=== PATIENT | female | born 1965 | race Caucasian/White ===

== ENCOUNTER 2016-11-29 14:15 | Observation (INO) | payer OTHER ==
[2016-11-29] MEDS ORDERED: BABY ASPIRIN 81 MG CHEW PO ONE (14:29)
[2016-11-29] MEDS ORDERED: BABY ASPIRIN 81 MG CHEW ONE (14:32)
[2016-11-29] MEDS ORDERED: GI COCKTAIL 45 ML (Maalox/Lidocaine) PO ONE (14:40)
--- NOTE | 2016-11-29 14:45 | ERPHSYRPT ---
- History of Present Illness Time Seen by Provider: 11/29/16 14:25 Historian: patient Exam Limitations: no limitations Patient Subjective Stated Complaint: pt states at 0400 this morning she raphael up with chest pressure. states pain has stayed the same all day. pt sent over from 's office. Triage Nursing Assessment: pt pink, warm, dry. radial pulses strong. pt ambulated into ER without difficulty. Physician History: 51 y/o female with history of hypercholesterolemia sent from Dr Sher'adolfo office for epigastric and chest pressure that started this morning at 4 am. Pt describes the pain as pressure-like, 3/10, constant and pt has not taken any pain meds. Pt denies any shortness of breath, dizziness, palpitations, nausea, vomiting or constipation. Pt has never had a stress test in the past. Pt is a chronic smoker for many years. Timing/Duration: today Activities at Onset: rest Quality: pressure Location: epigastric Chest Pain Radiation: no radiation Severity of Pain-Max: mild Severity of Pain-Current: mild Associated Symptoms: No nausea, No vomiting Nitro Today/Relief: no nitro taken today Aspirin Treatment Today: 81 mg x 4, provided by ED Allergies/Adverse Reactions: No Known Drug Allergies Allergy (Unverified 11/29/16 14:29) Home Medications: Albuterol Sulfate [Proair Hfa] 8.5 gm IH BIDPRN PRN 11/28/16 [History] Atorvastatin Calcium [Lipitor 40Mg] 40 mg PO DAILY 11/28/16 [History] Hx Tetanus, Diphtheria Vaccination/Date Given: Yes (unknown) Hx Influenza Vaccination/Date Given: No Hx Pneumococcal Vaccination/Date Given: No Immunizations Up to Date: Yes - Review of Systems Constitutional: No Fever, No Chills Eyes: No Symptoms Ears, Nose, & Throat: No Symptoms Respiratory: No Cough, No Dyspnea Cardiac: Chest Pain, No Edema, No Syncope Abdominal/Gastrointestinal: Abdominal Pain, No Nausea, No Vomiting, No Diarrhea Genitourinary Symptoms: No Dysuria Musculoskeletal: No Back Pain, No Neck Pain Skin: No Rash Neurological: No Dizziness, No Focal Weakness, No Sensory Changes Psychological: No Symptoms Endocrine: No Symptoms All Other Systems: Reviewed and Negative - Past Medical History Pertinent Past Medical History: Yes Cardiac History: High Cholesterol GI Medical History: GERD - Past Surgical History Past Surgical History: Yes Female Surgical History: Section - Social History Smoking Status: Current every day smoker How long have you smoked: 35 Exposure to second hand smoke: Yes Drug Use: none Patient Lives Alone: No - Nursing Vital Signs Nursing Vital Signs: Initial Vital Signs Temperature 98.5 F 11/29/16 14:22 Pulse Rate 68 11/29/16 14:22 Respiratory Rate 18 11/29/16 14:22 Blood Pressure 191/93 11/29/16 14:22 O2 Sat by Pulse Oximetry 98 11/29/16 14:22 Pain Scale Pain Intensity 3 - Physical Exam General Appearance: no apparent distress, alert, anxiety Eye Exam: PERRL/EOMI, eyes nml inspection Ears, Nose, Throat Exam: normal ENT inspection, moist mucous membranes Neck Exam: normal inspection, non-tender, supple, full range of motion Respiratory Exam: normal breath sounds, lungs clear, No respiratory distress Cardiovascular Exam: regular rate/rhythm, normal heart sounds Gastrointestinal/Abdomen Exam: soft, No tenderness, No mass Back Exam: normal inspection, No CVA tenderness, No vertebral tenderness Extremity Exam: normal inspection, normal range of motion Neurologic Exam: alert, oriented x 3, cooperative, normal mood/affect, sensation nml, No motor deficits Skin Exam: normal color, warm, dry SpO2: 98 Oxygen Delivery: Room Air - Course Nursing assessment & vital signs reviewed: Yes EKG Interpreted by Me: RATE (HR 65), NORMAL AXIS, NORMAL INTERVALS, NORMAL QRS Ordered Tests: Active Orders 24 hr Category Date Time Status Bedrest with BRP/BSC ROUTINE Activity 11/29/16 15:45 Active Admission/Status Order ROUTINE Care 11/29/16 15:45 Active Code Status Order ROUTINE Care 11/29/16 15:45 Active EKG-ER Only STAT Care 11/29/16 14:29 Active IV Care Q6H Care 11/29/16 15:45 Active IV Insertion STAT Care 11/29/16 14:29 Active Implement Chest Pain Pathway ROUTINE Care 11/29/16 15:45 Active Mac Isaacs, Apply ROUTINE Care 11/29/16 15:45 Active Telemetry ROUTINE Care 11/29/16 15:45 Active Weight,Daily 0600 Care 11/29/16 15:45 Active Cardiac Diet Diet 11/29/16 Dinner Active CHEST 2 VIEWS (PA AND LAT) Stat Exams 11/29/16 14:39 Completed CBC W DIFF Stat Lab 11/29/16 14:55 Completed CMP Stat Lab 11/29/16 14:55 Completed D-DIMER QUANTITATION Stat Lab 11/29/16 14:39 Completed HCG QUALITATIVE,SERUM Stat Lab 11/29/16 14:55 Completed LIPID PROFILE AM.LAB Lab 11/30/16 04:00 Ordered PT INR [PROTIME WITH INR] Stat Lab 11/29/16 14:39 Completed PTT Stat Lab 11/29/16 14:39 Completed TROPONIN Q3H Lab 11/29/16 14:55 Completed TROPONIN Q3H Lab 11/29/16 17:45 Ordered TROPONIN Q3H Lab 11/29/16 20:45 Ordered TROPONIN Q3H Lab 11/29/16 23:45 Ordered TROPONIN Q3H Lab 11/30/16 02:45 Ordered EKG Q8HX2,QAMX3,PRN RT 11/29/16 15:45 Active Pulse Oximetry Q4H RT 11/29/16 15:45 Active Transfer Order Routine Transfer 11/29/16 Completed Medication Summary Generic Name Dose Route Start Last Admin Trade Name Freq PRN Reason Stop Dose Admin Acetaminophen 650 mg 11/29/16 15:45 Tylenol 325 Mg PO 12/29/16 15:44 Q4H PRN PRN PAIN AND/OR FEVER Al Hydrox/Mg Hydrox/Simethicone 30 ml 11/29/16 15:45 Maalox Es 30 Ml Unit Dose PO 12/29/16 15:44 Q4H PRN PRN INDIGESTION Albuterol Sulfate 2 puff 11/29/16 17:10 Proventil Common Canister IH 12/29/16 17:09 BID PRN PRN Amoxicillin 500 mg 11/29/16 22:00 Amoxil 500 Mg PO 12/29/16 21:59 TID REGAN Aspirin 325 mg 11/30/16 10:00 Ecotrin 325 Mg PO 12/30/16 09:59 DAILY REGAN Magnesium Hydroxide 30 - 60 ml 11/29/16 15:45 Milk Of Magnesia 30 Ml PO 12/29/16 15:44 QDP PRN CONSTIPATION Nicotine 21 mg 11/29/16 17:00 11/29/16 17:19 Nicoderm Cq 21 Mg TOP 12/29/16 16:59 21 mg Q24H REGAN Administration Nitroglycerin 0.4 mg 11/29/16 15:20 Nitrostat 0.4 Mg Tablet SL 12/29/16 15:19 Q5MIN PRN MR X 3 PRN CHEST PAIN Ondansetron HCl 4 mg 11/29/16 15:45 Zofran 4 Mg/2 Ml Vial IV 12/29/16 15:44 Q4H PRN PRN NAUSEA/VOMITING Pantoprazole Sodium 40 mg 11/30/16 10:00 Protonix 40mg Tablet PO 12/30/16 09:59 DAILY REGAN Senna/Docusate Sodium 2 udtab 11/29/16 15:45 Senokot-S Tablet PO 12/29/16 15:44 BID PRN PRN CONSTIPATION Simvastatin 40 mg 11/29/16 22:00 Zocor 20mg PO 12/29/16 21:59 HS REGAN Discontinued Medications Generic Name Dose Route Start Last Admin Trade Name Freq PRN Reason Stop Dose Admin Al Hydrox/Mg Hydrox/Simethicone Confirm 11/29/16 14:49 Maalox Es 30 Ml Unit Dose Administered 11/29/16 14:50 Dose 30 ml .ROUTE .STK-MED ONE Aspirin 324 mg 11/29/16 14:29 11/29/16 14:34 Baby Aspirin 81 Mg Chew PO 11/29/16 14:30 324 mg STAT ONE Administration Aspirin Confirm 11/29/16 14:32 Baby Aspirin 81 Mg Chew Administered 11/29/16 14:33 Dose 324 mg .ROUTE .STK-MED ONE Lidocaine HCl Confirm 11/29/16 14:49 Xylocaine Hcl Viscous * Administered 11/29/16 14:50 Dose 15 ml .ROUTE .STK-MED ONE Magnesium Hydroxide 45 ml 11/29/16 14:40 11/29/16 14:51 Gi Cocktail 45 Ml (Maalox/Lidocaine) PO 11/29/16 14:41 45 ml STAT ONE Administration Nitroglycerin Confirm 11/29/16 15:22 Nitrostat 0.4 Mg (Ed) Administered 11/29/16 15:23 Dose 0.4 mg SL .STK-MED ONE Lab/Rad Data: Laboratory Result Diagrams 11/29/16 14:55 11/29/16 14:55 Laboratory Results 11/29/16 11/29/1617 Range/Units 14:55 14:55 14:55 WBC (4.0-10.5) K/mm3 RBC (4.1-5.4) M/mm3 Hgb (12.0-16.0) gm/dl Hct (35-47) % MCV (78-100) fl MCH (26-32) pg MCHC (32-36) g/dl RDW (11.5-14.0) % Plt Count (150-450) K/mm3 MPV (6-9.5) fl Gran % (36.0-66.0) % Lymphocytes % (24.0-44.0) % Monocytes % (0.0-12.0) % Eosinophils % (0.00-5.0) % Basophils % (0.0-0.4) % Basophils # (0-0.4) INR (0.8-3.0) APTT (25.3-37.0) SECONDS D-Dimer (0-500) ng/mL Sodium 143 (136-145) mEq/L Potassium 4.0 (3.5-5.1) mEq/L Chloride 104 (98-107) mEq/L Carbon Dioxide 29.3 (21-32) mEq/L Anion Gap 13.3 (5-15) MEQ/L BUN 14 (9-20) mg/dL Creatinine 1.22 (0.55-1.30) mg/dl Estimated GFR 49 ML/MIN Glucose 118 H (70-110) MG/DL Calcium 9.6 (8.5-10.1) mg/dL Total Bilirubin 0.40 (0.2-1.0) mg/dL AST 17 (15-37) U/L ALT 21 (12-78) U/L Alkaline Phosphatase 87 (46-116) U/L Troponin I < 0.017 (0.000-0.056) ng/ml Serum Total Protein 7.7 (6.4-8.2) gm/dL Albumin 3.6 (3.4-5.0) g/dL Serum , Qual NEGATIVE (Negative) 11/29/16 11/29/16 Range/Units 14:55 14:39 WBC 10.1 (4.0-10.5) K/mm3 RBC 4.63 (4.1-5.4) M/mm3 Hgb 14.1 (12.0-16.0) gm/dl Hct 43.2 (35-47) % MCV 93.3 (78-100) fl MCH 30.5 (26-32) pg MCHC 32.6 (32-36) g/dl RDW 13.5 (11.5-14.0) % Plt Count 222 (150-450) K/mm3 MPV 11.1 H (6-9.5) fl Gran % 56.2 (36.0-66.0) % Lymphocytes % 34.0 (24.0-44.0) % Monocytes % 6.4 (0.0-12.0) % Eosinophils % 3.0 (0.00-5.0) % Basophils % 0.4 (0.0-0.4) % Basophils # 0.04 (0-0.4) INR 1.02 (0.8-3.0) APTT 35.6 (25.3-37.0) SECONDS D-Dimer 258 (0-500) ng/mL Sodium (136-145) mEq/L Potassium (3.5-5.1) mEq/L Chloride (98-107) mEq/L Carbon Dioxide (21-32) mEq/L Anion Gap (5-15) MEQ/L BUN (9-20) mg/dL Creatinine (0.55-1.30) mg/dl Estimated GFR ML/MIN Glucose (70-110) MG/DL Calcium (8.5-10.1) mg/dL Total Bilirubin (0.2-1.0) mg/dL AST (15-37) U/L ALT (12-78) U/L Alkaline Phosphatase (46-116) U/L Troponin I (0.000-0.056) ng/ml Serum Total Protein (6.4-8.2) gm/dL Albumin (3.4-5.0) g/dL Serum , Qual (Negative) - Progress Progress: improved Progress Note: 11/29/16 15:38 Pt has no relief of pain after receiving GI cocktail but admits to some relief after receiving nitro 0.4mg SL X 1 dose. The EKG and troponin are unremarkable. Pt will need to be admitted for chest pain and to have the cardiac enzymes followed. - Departure Time of Disposition: 17:54 Departure Disposition: In-patient Admission Clinical Impression: Chest pain Qualifiers: Chest pain type: unspecified Qualified Code(s): R07.9 - Chest pain, unspecified Condition: Stable Critical Care Time: No
[2016-11-29] MEDS ORDERED: XYLOCAINE HCl Viscous ONE (14:49)
[2016-11-29] MEDS ORDERED: MAALOX ES 30 ML UNIT DOSE ONE (14:49)
[2016-11-29 14:59] LABS: BASOPHIL % 0.4 % (0.0-0.4); Granulocytes % 56.2 % (36.0-66.0); Mean Cell Volume 93.3 fl (78-100); Mean Corpuscular Hemoglobin 30.5 pg (26-32); Mean Platelet Volume 11.1 fl (6-9.5); Monocytes % 6.4 % (0.0-12.0); Platelet Count 222 K/mm3 (150-450); Red Blood Count 4.63 M/mm3 (4.1-5.4); Red Cell Distribution Width 13.5 % (11.5-14.0); White Blood Count 10.1 K/mm3 (4.0-10.5)
[2016-11-29] MEDS ORDERED: Nitrostat 0.4 MG Tablet SL PRN (15:20)
[2016-11-29] MEDS ORDERED: Nitrostat 0.4 MG (ED) SL ONE (15:22)
[2016-11-29 15:26] LABS: ALBUMIN 3.6 g/dL (3.4-5.0); ANION GAP 13.3 MEQ/L (5-15); BILIRUBIN,TOTAL 0.4 mg/dL (0.2-1.0); Carbon Dioxide 29.3 mEq/L (21-32); Total Protein 7.7 gm/dL (6.4-8.2)
--- NOTE | 2016-11-29 15:26 | XRAY ---
Indication: Chest pain. Comparison: November 12, 2016. PA/lateral chest again demonstrates normal heart, lungs, and bony thorax.
[2016-11-29] MEDS ORDERED: MAALOX ES 30 ML UNIT DOSE PO PRN (15:45)
[2016-11-29] MEDS ORDERED: Zofran 4 MG/2 ML VIAL IV PRN (15:45)
[2016-11-29] MEDS ORDERED: Senokot-S Tablet PO PRN (15:45)
[2016-11-29] MEDS ORDERED: TYLENOL 325 MG PO PRN (15:45)
[2016-11-29] MEDS ORDERED: MILK OF MAGNESIA 30 ML PO PRN (15:45)
[2016-11-29 15:50] LABS: INR 1.02 (0.8-3.0); PROTIME 11.3 SECONDS (9.95-12.35)
[2016-11-29 15:53] LABS: PTT 35.6 SECONDS (25.3-37.0)
[2016-11-29] MEDS ORDERED: Nicoderm CQ 21 MG TOP SCH (17:00)
[2016-11-29] MEDS ORDERED: Ventolin Hfa MDI IH PRN (17:05)
[2016-11-29] MEDS ORDERED: PROVENTIL COMMON CANISTER IH PRN (17:10)
[2016-11-29] MEDS ORDERED: ZOCOR 20MG PO SCH (22:00)
[2016-11-29] MEDS: AMOXIL 500 MG PO SCH (22:15)
[2016-11-30] MEDS ORDERED: PROVENTIL COMMON CANISTER IH SCH (07:00)
[2016-11-30 08:28] VITALS: PULSE 76; O2SAT 96
[2016-11-30 08:38] VITALS: BP 143/65
[2016-11-30] MEDS: AMOXIL 500 MG PO SCH (08:43)
--- NOTE | 2016-11-30 08:46 | PCM.DCORD ---
- Discharge Discharge Date: 11/30/16 Disposition: Home, Self-Care Condition: Stable Prescriptions: New Amoxicillin 500 mg PO TID #30 capsule Aspirin 81 mg PO DAILY #30 tablet Continue Esomeprazole Magnesium [Nexium 24Hr] 40 mg PO DAILY #7 tablet. Atorvastatin Calcium [Lipitor 40Mg] 40 mg PO DAILY Albuterol Sulfate [Proair Hfa] 8.5 gm IH BIDPRN PRN PRN Reason: Shortness Of Breath/Wheezing Follow up with: STU DE ANDA [Primary Care Provider] - Forms: Patient Portal Information
--- NOTE | 2016-11-30 08:46 | PCM.HP ---
History of Present Illness - Chief Complaint Chief Complaint: chest pain Date: 11/30/16 History of Present Illness: is a 51 year old female. who was seen in clinic yesterday by Dr. Barrett for chest pressure substernal that she awoke with and was thought to have some changes on her ekg so was sent to ed where ekg there was normal and no change compared to an old ekg of her. The chest pressure has subsided since yesterday and is mild and rare now. She has no shortness of breath or diaphoresis no nausea or vomiting. She has chronic heart burn she is treated for and taking her PPI. she continues to smoke. no previous cardiac disease or evaluation. - Review of Systems Constitutional: No Fever, No Chills Eyes: No Symptoms Ears, Nose, & Throat: No Symptoms Respiratory: No Cough, No Short Of Breath Cardiac: Chest Pain, No Edema, No Syncope Abdominal/Gastrointestinal: No Abdominal Pain, No Nausea, No Vomiting, No Diarrhea Genitourinary Symptoms: No Dysuria Musculoskeletal: No Back Pain, No Neck Pain Skin: No Rash Neurological: No Dizziness, No Focal Weakness, No Sensory Changes Psychological: No Symptoms Endocrine: No Symptoms Hematologic/Lymphatic: No Symptoms Immunological/Allergic: No Symptoms Medications & Allergies Home Medications: Home Medication List Esomeprazole Magnesium [Nexium 24Hr] 40 mg PO DAILY #7 tablet. 11/12/15 [Rx Confirmed 11/29/16] Albuterol Sulfate [Proair Hfa] 8.5 gm IH BIDPRN PRN 11/28/16 [History Confirmed 11/29/16] Atorvastatin Calcium [Lipitor 40Mg] 40 mg PO DAILY 11/28/16 [History Confirmed 11/29/16] Amoxicillin 500 mg PO TID #30 capsule 11/30/16 [Rx] Aspirin 81 mg PO DAILY #30 tablet 11/30/16 [Rx] Allergies/Adverse Reactions: Allergies Allergy/AdvReac Type Severity Reaction Status Date / Time No Known Drug Allergies Allergy Unverified 11/29/16 14:29 - Past Medical History Past Medical History: Yes Neurological History: No Pertinent History ENT History: No Pertinent History Cardiac History: High Cholesterol Respiratory History: Asthma Endocrine Medical History: No Pertinent History Musculoskelatal History: No Pertinent History GI Medical History: GERD History: No Pertinent History Pyscho-Social History: No Pertinent History Reproductive Disorders: No Pertinent History - Female History Are you now?: No - Past Surgical History Past Surgical History: Yes Neuro Surgical History: No Pertinent History Cardiac History: Cardiac Catheterization Respiratory Surgery: No Pertinent History GI Surgical History: No Pertinent History Genitourinary Surgical Hx: No Pertinent History Female Surgical History: Section - Social History Smoking Status: Current every day smoker How long have you smoked: 35 Exposure to second hand smoke: Yes Alcohol: None Drug Use: none - Physical Exam Vital Signs: Vital Signs - 24 hr Temp Pulse Pulse Resp BP Pulse Ox 11/30/16 08:37 143/65 11/30/16 08:25 76 16 96 11/30/16 07:46 97.5 F 71 18 184/77 97 11/30/16 04:00 98.3 F 67 18 181/81 96 11/29/16 23:33 98.1 F 62 18 181/72 96 11/29/16 21:14 77 18 97 11/29/16 20:03 98.2 F 72 19 166/70 96 11/29/16 17:55 98 11/29/16 16:12 97.5 F 90 22 180/84 91 L 11/29/16 16:03 97.5 F 90 22 180/84 11/29/16 15:52 60 18 153/91 11/29/16 15:45 91 L 11/29/16 15:25 53 L 18 169/84 11/29/16 14:22 98.5 F 65 68 18 191/93 98 General Appearance: no apparent distress, alert Neurologic Exam: alert, oriented x 3, cooperative, normal mood/affect, nml cerebellar function, nml station & gait, sensation nml, No motor deficits Eye Exam: PERRL/EOMI, eyes nml inspection Ears, Nose, Throat Exam: normal ENT inspection, pharynx normal, moist mucous membranes Neck Exam: normal inspection, non-tender, supple, full range of motion Respiratory Exam: normal breath sounds, lungs clear, No respiratory distress Cardiovascular Exam: regular rate/rhythm, normal heart sounds, normal peripheral pulses Gastrointestinal/Abdomen Exam: soft, normal bowel sounds, No tenderness, No mass Back Exam: normal inspection, normal range of motion, No CVA tenderness, No vertebral tenderness Extremity Exam: normal inspection, normal range of motion, pelvis stable Skin Exam: normal color, warm, dry, No rash Lymphatic Exam: No adenopathy Results - Labs Lab/Micro Results: Lab Results-Last 24 Hours 11/29/16 11/29/16 11/30/16 Range/Units 18:20 21:15 03:29 Troponin I < 0.017 < 0.017 < 0.017 (0.000-0.056) ng/ml Triglycerides (30-200) mg/dL Cholesterol (100-200) mg/dL LDL Cholesterol (5-99) mg/dL HDL Cholesterol (35-60) mg/dL Heart Disease Risk Ratio 11/30/16 Range/Units 04:04 Troponin I (0.000-0.056) ng/ml Triglycerides 100 (30-200) mg/dL Cholesterol 144 (100-200) mg/dL LDL Cholesterol 75 (5-99) mg/dL HDL Cholesterol 52 (35-60) mg/dL Heart Disease Risk Ratio 2.8 - Other Procedures and Tests Respiratory Therapy 11/29/16 19:00 Respiratory MDI BID 11/30/16 08:43 STRESS TEST [Schedule Outpt Stress Test] Routine 12/01/16 05:00 EKG ROUTINE 12/02/16 05:00 EKG ROUTINE Assessment/Plan (1) Chest pain Status: Acute Qualifiers: Chest pain type: unspecified Qualified Code(s): R07.9 - Chest pain, unspecified Assessment & Plan: cardiac enzymes negative no events on telemetry symptoms resolved continue treatment for GERD set up outpatient stress testing discussed smoking cessation continue current medications and take 81 mg aspirin daily. f/u with Dr. Barrett in the office return to ED for new or worsening chest pain or sob Code(s): R07.9 - CHEST PAIN, UNSPECIFIED (2) GERD (gastroesophageal reflux disease) Status: Chronic Code(s): K21.9 - GASTRO-ESOPHAGEAL REFLUX DISEASE WITHOUT ESOPHAGITIS (3) Tooth abscess Status: Chronic Assessment & Plan: on amoxicillin prior to arrival Code(s): K04.7 - PERIAPICAL ABSCESS WITHOUT SINUS
[2016-11-30] MEDS ORDERED: LIPITOR 40MG PO SCH (10:00)
[2016-11-30] MEDS ORDERED: Protonix 40MG Tablet PO SCH (10:00)
[2016-11-30] MEDS ORDERED: ESOMEPRAZOLE MAGNESIUM 40 MG PO SCH (10:00)
[2016-11-30] MEDS ORDERED: Ecotrin 325 MG PO SCH (10:00)
== END 2016-11-30 09:25 | disposition home or self-care (01) ==
LOC: ED 14:15 → MED SURG 16:00
PROVIDERS: ADMIT Internal Medicine; ATTEND Internal Medicine
DX: R07.9 Chest pain, unspecified (principal); K21.9 Gastro-esophageal reflux disease without esophagitis; K04.7 Periapical abscess without sinus; J45.909 Unspecified asthma, uncomplicated; Z72.0 Tobacco use
CPT/HCPCS: 36000; 36415; 71020; 80053; 80061; 83721; 84484; 84703; 85025; 85379; 85610; 85730; 93005; 93268; 94640; 94760; 99285; G0378; A9270-GY

== ENCOUNTER 2016-12-06 05:57 | Day surgery (SDC) | payer OTHER ==
[2016-12-06] MEDS ORDERED: DIPRIVAN 200 MG/20 ML IV ONE (05:58)
[2016-12-06] MEDS ORDERED: Versed 2 MG/2 ML Injection IV ONE (05:58)
[2016-12-06] MEDS ORDERED: Lactated Ringers 1,000 ML IV SCH (06:30)
[2016-12-06] MEDS ORDERED: Xopenex 1.25 MG/0.5 ML UD NEBULE IH ONE (07:01)
[2016-12-06] MEDS ORDERED: Sodium Chloride 3 ML UD NEBULES IH SCH (07:15)
[2016-12-06 07:28] VITALS: O2SAT 97
--- NOTE | 2016-12-06 08:15 | OP ---
SURGERY DATE/TIME: 12/06/2016 0728 PREOPERATIVE DIAGNOSIS: Screening exam. POSTOPERATIVE DIAGNOSIS: Normal colon. PROCEDURE: Colonoscopy. SURGEON: Dr. Ferreira. ANESTHESIA: MAC. Medications given by anesthesia department. HISTORY: The patient is a 51 year-old white female presenting now for screening colonoscopy. She was appraised of the risks of the procedure including the risk of perforation, phlebitis, untoward reaction to medication, bleeding and missed lesions. The patient verbalized her understanding and desired to have the procedure performed. DESCRIPTION OF PROCEDURE: The patient was given the medications by the anesthesia department. She had continuous pulse oximetry, ECG monitoring, intermittent blood pressure monitoring, and tidal CO2 monitoring during the examination. She was placed in the left lateral decubitus position. A digital rectal examination was performed and revealed normal anal sphincter tone and no masses. The flexible Olympus pediatric colonoscope was used to intubate the rectum. A view of the colon was developed sequentially to the cecum. Upon insertion and withdrawal, including a retroflex view in the rectum, no mucosal lesions were encountered. The scope was removed from the patient who tolerated the procedure well and was sent back to OP recovery in good condition.
[2016-12-06 08:32] VITALS: BP 151/53; PULSE 69
== END 2016-12-06 08:42 | disposition home or self-care (01) ==
LOC: SDC 05:57
PROVIDERS: ATTEND Family Medicine
PROC: 0DJD8ZZ Inspection of Lower Intestinal Tract, Via Natural or Artificial Opening Endoscopic (ICD-10-PCS; principal; 2016-12-06)
DX: Z12.11 Encounter for screening for malignant neoplasm of colon (principal)
CPT/HCPCS: 00810; 94640; J2250; J2704; A9270-GY

== ENCOUNTER 2017-08-15 00:29 | Emergency (ER) | payer OTHER ==
[2017-08-15] MEDS ORDERED: BABY ASPIRIN 81 MG CHEW PO ONE (00:53)
--- NOTE | 2017-08-15 01:02 | ERPHSYRPT ---
- History of Present Illness Time Seen by Provider: 08/15/17 00:49 Historian: patient Exam Limitations: no limitations Patient Subjective Stated Complaint: pt states she has been having pain in her lt chest, shoulder and lt upper back, states pain is increasedw ith movement Triage Nursing Assessment: pt alert and oriented, answers qeustions approp. pt ambulatory with steady gait ntoed. respirations nonlabored with lungs cta. skin warm and dry. heart rate 62 sinus rhythm on monitor Physician History: 52-year-old white female arrives with complaint of pain in her left upper chest which "feels like someone punched me there" radiates to her back worse with breathing and moving of her left shoulder symptoms since 10:00 this evening Patient states she has some shortness of breath with this no nausea no vomiting Patient states she took a nitroglycerin without improvement. Past medical history includes asthma, hyperlipidemia, GERD past surgical history includes 3 Patient states she's been through menopause Social history positive tobacco use Timing/Duration: today (10:00 this evening) Activities at Onset: none Quality: other (feels like someone punched her) Location: other (left upper chest) Chest Pain Radiation: arm (left shoulder), back Severity of Pain-Max: moderate Severity of Pain-Current: moderate Modifying Factors: Improves With: nitroglycerin (patient took 1 nitroglycerin without r) Prior Chest Pain/Cardiac Workup: echocardiography (recent echocardiogram normal contractility), stress test (recent stress test patient not sure of results) Nitro Today/Relief: 0.4 mg x 1 Aspirin Treatment Today: 81 mg x 1 (81 mg at home), 81 mg x 3 (243 mg in the emergency room) Allergies/Adverse Reactions: No Known Drug Allergies Allergy (Verified 08/15/17 00:44) Home Medications: Albuterol Sulfate [Proair Hfa] 8.5 gm IH BIDPRN PRN 11/28/16 [History] Atorvastatin Calcium [Lipitor 40Mg] 40 mg PO DAILY 11/28/16 [History] PANTOPRAZOLE 40 mg Tablet [Protonix 40MG Tablet] 40 mg PO QAM 08/15/17 [ History] Hx Tetanus, Diphtheria Vaccination/Date Given: No (unknown) Hx Influenza Vaccination/Date Given: No Hx Pneumococcal Vaccination/Date Given: No Immunizations Up to Date: No - Review of Systems Constitutional: No Fever, No Chills Eyes: No Symptoms Ears, Nose, & Throat: No Symptoms Respiratory: Dyspnea, No Cough, No Cyanosis, No Dyspnea on Exertion (WELSH), No Stridor, No Wheezing Cardiac: Chest Pain (left upper chest pain radiating to back and shoulder worse with breathing), No Edema, No Palpitations, No Syncope, No Orthopnea, No PND Abdominal/Gastrointestinal: No Abdominal Pain, No Nausea, No Vomiting, No Diarrhea Genitourinary Symptoms: No Dysuria Musculoskeletal: No Back Pain, No Neck Pain Skin: No Rash Neurological: No Dizziness, No Focal Weakness, No Sensory Changes Psychological: No Symptoms Endocrine: No Symptoms All Other Systems: Reviewed and Negative - Past Medical History Pertinent Past Medical History: Yes Neurological History: No Pertinent History ENT History: No Pertinent History Cardiac History: High Cholesterol, Hypertension Respiratory History: Asthma Endocrine Medical History: No Pertinent History Musculoskeletal History: No Pertinent History GI Medical History: GERD History: No Pertinent History Psycho-Social History: No Pertinent History Female Reproductive Disorders: No Pertinent History Other Medical History: possible heart- didnt follow up - Past Surgical History Past Surgical History: Yes Neuro Surgical History: No Pertinent History Cardiac: No Pertinent History Respiratory: No Pertinent History Gastrointestinal: No Pertinent History Genitourinary: No Pertinent History Musculoskeletal: No Pertinent History Female Surgical History: Section Other Surgical History: x three - Social History Smoking Status: Current every day smoker How long have you smoked: 40 Exposure to second hand smoke: Yes Drug Use: none Patient Lives Alone: No - Female History Hx Last Menstrual Period: post jeison Hx Now: No - Nursing Vital Signs Nursing Vital Signs: Initial Vital Signs Temperature 97.9 F 08/15/17 00:34 Pulse Rate 62 08/15/17 00:34 Respiratory Rate 20 08/15/17 00:34 Blood Pressure 113/85 08/15/17 00:34 O2 Sat by Pulse Oximetry 99 08/15/17 00:34 Pain Scale Pain Intensity 3 - Physical Exam General Appearance: mild distress Eye Exam: PERRL/EOMI, eyes nml inspection Ears, Nose, Throat Exam: normal ENT inspection, moist mucous membranes Neck Exam: normal inspection, non-tender, supple, full range of motion Respiratory Exam: normal breath sounds, lungs clear, No respiratory distress Cardiovascular Exam: regular rate/rhythm, normal heart sounds Gastrointestinal/Abdomen Exam: soft, No tenderness, No mass Back Exam: normal inspection, No CVA tenderness, No vertebral tenderness Extremity Exam: normal inspection, normal range of motion Neurologic Exam: alert, oriented x 3, cooperative, 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, normal mood/affect, sensation nml, No motor deficits Skin Exam: normal color, warm, dry SpO2 Interpretation: normal (99%) SpO2: 99 Oxygen Delivery: Room Air - Course Nursing assessment & vital signs reviewed: Yes EKG Interpreted by Me: RATE (57 bpm), Sinus Abe, NORMAL AXIS, Other (EKG: Sinus bradycardia, 57 bpm, normal axis, essentially normal EKG no change as compared to November 30, 2016) Ordered Tests: Active Orders 24 hr Category Date Time Status Medical Care Manager STAT Care 08/15/17 00:54 Active EKG-ER Only STAT Care 08/15/17 00:53 Active IV Insertion STAT Care 08/15/17 00:53 Active CHEST 1 VIEW (PORTABLE) Stat Exams 08/15/17 00:54 Taken CBC W DIFF Stat Lab 08/15/17 00:59 Completed CMP Stat Lab 08/15/17 00:59 Completed D-DIMER QUANTITATION Stat Lab 08/15/17 00:59 Completed HCG QUALITATIVE,SERUM Stat Lab 08/15/17 00:59 Completed PROTIME WITH INR Stat Lab 08/15/17 00:59 Completed PTT Stat Lab 08/15/17 00:59 Completed TROPONIN Q3H Lab 08/15/17 00:59 Completed TROPONIN Q3H Lab 08/15/17 04:00 Ordered TROPONIN Q3H Lab 08/15/17 07:00 Ordered TROPONIN Q3H Lab 08/15/17 10:00 Ordered TROPONIN Q3H Lab 08/15/17 13:00 Ordered Medication Summary Discontinued Medications Generic Name Dose Route Start Last Admin Trade Name Freq PRN Reason Stop Dose Admin Aspirin 243 mg 08/15/17 00:53 08/15/17 01:03 Baby Aspirin 81 Mg Chew PO 08/15/17 00:54 243 mg STAT ONE Administration Lab/Rad Data: Laboratory Result Diagrams 08/15/17 00:59 08/15/17 00:59 Laboratory Results 08/15/17 08/15/17 08/15/17 Range/Units 00:59 00:59 00:59 WBC (4.0-10.5) K/mm3 RBC (4.1-5.4) M/mm3 Hgb (12.0-16.0) gm/dl Hct (35-47) % MCV (78-100) fl MCH (26-32) pg MCHC (32-36) g/dl RDW (11.5-14.0) % Plt Count (150-450) K/mm3 MPV (6-9.5) fl Gran % (36.0-66.0) % Eos # (Auto) (0-0.5) Absolute Lymphs (auto) (1.0-4.6) Absolute Monos (auto) (0.0-1.3) Lymphocytes % (24.0-44.0) % Monocytes % (0.0-12.0) % Eosinophils % (0.00-5.0) % Basophils % (0.0-0.4) % Absolute Granulocytes (1.4-6.9) Basophils # (0-0.4) PT 10.6 (9.95-12.35) SECONDS INR 0.91 (0.8-3.0) APTT 36.7 (25.3-37.0) SECONDS D-Dimer 276 (215-500) ng/mL Sodium (137-145) mmol/L Potassium (3.5-5.1) mmol/L Chloride (98-107) mmol/L Carbon Dioxide (22-30) mmol/L Anion Gap (5-15) MEQ/L BUN (7-17) mg/dL Creatinine (0.52-1.04) mg/dL Estimated GFR ML/MIN Glucose (74-106) mg/dL Calcium (8.4-10.2) mg/dL Total Bilirubin (0.2-1.3) mg/dL AST (14-36) U/L ALT (0-35) U/L Alkaline Phosphatase (38-126) U/L Troponin I < 0.012 (0.000-0.034) ng/mL Serum Total Protein (6.3-8.2) g/dL Albumin (3.5-5.0) g/dL Serum , Qual NEGATIVE (Negative) 08/15/17 08/15/17 Range/Units 00:59 00:59 WBC 12.0 H (4.0-10.5) K/mm3 RBC 4.64 (4.1-5.4) M/mm3 Hgb 14.3 (12.0-16.0) gm/dl Hct 43.0 (35-47) % MCV 92.7 (78-100) fl MCH 30.8 (26-32) pg MCHC 33.3 (32-36) g/dl RDW 13.5 (11.5-14.0) % Plt Count 216 (150-450) K/mm3 MPV 11.6 H (6-9.5) fl Gran % 48.4 (36.0-66.0) % Eos # (Auto) 0.51 H (0-0.5) Absolute Lymphs (auto) 4.59 (1.0-4.6) Absolute Monos (auto) 1.03 (0.0-1.3) Lymphocytes % 38.4 (24.0-44.0) % Monocytes % 8.6 (0.0-12.0) % Eosinophils % 4.3 (0.00-5.0) % Basophils % 0.3 (0.0-0.4) % Absolute Granulocytes 5.80 (1.4-6.9) Basophils # 0.03 (0-0.4) PT (9.95-12.35) SECONDS INR (0.8-3.0) APTT (25.3-37.0) SECONDS D-Dimer (215-500) ng/mL Sodium 142 (137-145) mmol/L Potassium 4.0 (3.5-5.1) mmol/L Chloride 107 (98-107) mmol/L Carbon Dioxide 25 (22-30) mmol/L Anion Gap 14.0 (5-15) MEQ/L BUN 19 H (7-17) mg/dL Creatinine 1.01 (0.52-1.04) mg/dL Estimated GFR > 60.0 ML/MIN Glucose 119 H (74-106) mg/dL Calcium 9.3 (8.4-10.2) mg/dL Total Bilirubin 0.20 (0.2-1.3) mg/dL AST 33 (14-36) U/L ALT 27 (0-35) U/L Alkaline Phosphatase 105 (38-126) U/L Troponin I (0.000-0.034) ng/mL Serum Total Protein 7.1 (6.3-8.2) g/dL Albumin 4.1 (3.5-5.0) g/dL Serum , Qual (Negative) - Progress Progress: improved Air Movement: fair Progress Note: 08/15/17 01:08 52-year-old white female arrives with complaint of pain in the left upper chest radiating to her left shoulder and back worse with movement which began around 10:00 patient states she took nitroglycerin without relief she describes pain as being punched. She states she does have some shortness of breath no nausea Patient had a recent echocardiogram which was essentially normal with some mild dilatation of the aortic root but normal cardiac contractility this was done in November 2016 Patient also had a stress test which was performed December 09, 2016 patient could not continue for a full minute after reaching maximal heart rate she showed poor exercise tolerance and complained of shortness of breath there were no rhythm changes or EKG changes suggestive of ischemia, during the portion she was able to complete. 08/15/17 01:48 Patient states she was going to have a catheterization January but did not keep her appointment. Patient is feeling better still some pain in her left upper chest radiating to her left shoulder worse with movement. Patient's chest x-ray CBC CMP and troponin are all normal. I have offered to have her stay and do repeat troponin 3 hours after last draw she states she does not want to do this. I have told her that I cannot completely rule out cardiac etiology without getting repeat troponins she is aware of this. Patient wants to go home.. Will give patient Toradol 30 mg IV. Plan to discharge - Departure Time of Disposition: 01:50 Departure Disposition: Home Clinical Impression: Non-cardiac chest pain Condition: Fair Critical Care Time: No Referrals: STU DE ANDA [Primary Care Provider] - Additional Instructions: Return home, rest. Tylenol every 4 hours as needed for pain. Follow-up with your family doctor. Call in the morning and schedule an appointment. Return for acute distress or for severe symptoms.
[2017-08-15 01:03] LABS: BASOPHIL % 0.3 % (0.0-0.4); Basophil (Absolute #) 0.03 (0-0.4); Eosinophil % 4.3 % (0.00-5.0); Eosinophil (Absolute #) 0.51 (0-0.5); Granulocytes % 48.4 % (36.0-66.0); Hemoglobin 14.3 gm/dl (12.0-16.0); Lymphocyte (Absolute #) 4.59 (1.0-4.6); Lymphocytes % 38.4 % (24.0-44.0); Mean Cell Volume 92.7 fl (78-100); Mean Corpuscular Hemoglobin 30.8 pg (26-32); Mean Corpuscular Hgb Concent. 33.3 g/dl (32-36); Mean Platelet Volume 11.6 fl (6-9.5); Monocyte (Absolute #) 1.03 (0.0-1.3); Monocytes % 8.6 % (0.0-12.0); Platelet Count 216 K/mm3 (150-450); Red Blood Count 4.64 M/mm3 (4.1-5.4); Red Cell Distribution Width 13.5 % (11.5-14.0)
[2017-08-15 01:13] LABS: INR 0.91 (0.8-3.0)
[2017-08-15 01:14] LABS: ALBUMIN 4.1 g/dL (3.5-5.0); ALKALINE PHOSPHATASE 105 U/L (38-126); BLOOD UREA NITROGEN 19 mg/dL (7-17); CHLORIDE 107 mmol/L (98-107); Calcium 9.3 mg/dL (8.4-10.2); Carbon Dioxide 25 mmol/L (22-30); Creatinine 1 1.01 mg/dL (0.52-1.04); Glucose 119 mg/dL (74-106); SGOT/AST 33 U/L (14-36); SGPT/ALT 27 U/L (0-35); SODIUM 142 mmol/L (137-145); Total Protein 7.1 g/dL (6.3-8.2)
[2017-08-15 01:16] LABS: PTT 36.7 SECONDS (25.3-37.0)
[2017-08-15] MEDS ORDERED: TORAdol 30 mg Injection IV ONE (01:47)
[2017-08-15] MEDS ORDERED: TORAdol 30 mg Injection ONE (01:53)
[2017-08-15 02:09] VITALS: BP 143/85; PULSE 57; O2SAT 98
--- NOTE | 2017-08-15 08:45 | XRAY ---
Indication: Chest pain. Comparison: November 29, 2016. Portable chest again demonstrates normal heart and lungs. Bony thorax intact. No new/acute findings.
== END 2017-08-15 02:17 | disposition home or self-care (01) ==
LOC: ED 00:29
DX: R07.89 Other chest pain (principal); R06.02 Shortness of breath; Z79.899 Other long term (current) drug therapy
CPT/HCPCS: 36000; 36415; 71045; 80053; 84484; 84703; 85025; 85379; 85610; 85730; 93005; 93041; 96374; 99284; J1885; A9270-GY

== ENCOUNTER 2020-09-05 15:58 | Emergency (ER) | payer OTHER ==
[2020-09-05 16:13] VITALS: BP 183/84; PULSE 76; O2SAT 96
--- NOTE | 2020-09-05 16:37 | ERPHSYRPT ---
- History of Present Illness Time Seen by Provider: 09/05/20 16:20 Source: patient Exam Limitations: no limitations Patient Subjective Stated Complaint: pt twisted right ankle while stepping off concrete today, co pain to outer ankle and top of foot Triage Nursing Assessment: pt alert, walked in, resp easy, skin w/d/p, able to bear wt on foot, no swelling noted Physician History: Patient is a 55-year-old female presents to our ED with complaints of right ankle pain. Patient states she was at work. Patient inverted her foot. There is no falls or trauma. Pain described as an ache that is localized to the lateral malleolus and just anterior to the talus. Overlying soft tissue intact. Extremity neurovascular intact distally. Pain described as an ache that is localized. No radiation. Pain worse with weightbearing pain improved with rest. No associated numbness tingling or weakness. Patient has history of asthma. She says she is otherwise healthy. She voices no other complaints or concerns at this time. Method of Injury: twisted Occurred: just prior to arrival Quality: constant Severity of Pain-Max: moderate Severity of Pain-Current: mild Lower Extremities Pain: foot: right, ankle: right Modifying Factors: Improves With: movement Associated Symptoms: none Allergies/Adverse Reactions: No Known Drug Allergies Allergy (Verified 09/05/20 16:06) Home Medications: Albuterol Sulfate [Proair Hfa] 8.5 gm IH BIDPRN PRN 11/28/16 [History] Atorvastatin Calcium [Lipitor 40Mg] 40 mg PO DAILY 11/28/16 [History] PANTOPRAZOLE 40 mg Tablet [Protonix 40MG Tablet] 40 mg PO QAM 08/15/17 [History] Hx Tetanus, Diphtheria Vaccination/Date Given: No Hx Influenza Vaccination/Date Given: Yes Hx Pneumococcal Vaccination/Date Given: No Immunizations Up to Date: Yes Travel Risk - International Travel Have you traveled outside of the country in past 3 weeks: No - Coronavirus Screening Are you exhibiting any of the following symptoms?: No - Vaccine Status Have you recieved a Covid-19 vaccination: No - Review of Systems Constitutional: No Symptoms, No Fever, No Chills Eyes: No Symptoms Ears, Nose, & Throat: No Symptoms Respiratory: No Symptoms, No Cough, No Dyspnea Cardiac: No Symptoms, No Chest Pain, No Edema, No Syncope Abdominal/Gastrointestinal: No Symptoms, No Abdominal Pain, No Nausea, No Vomiting, No Diarrhea Genitourinary Symptoms: No Symptoms, No Dysuria Musculoskeletal: No Symptoms, No Back Pain, No Neck Pain Skin: No Symptoms, No Rash Neurological: No Symptoms, No Dizziness, No Focal Weakness, No Sensory Changes Psychological: No Symptoms Endocrine: No Symptoms Hematologic/Lymphatic: No Symptoms Immunological/Allergic: No Symptoms All Other Systems: Reviewed and Negative - Past Medical History Pertinent Past Medical History: Yes Neurological History: No Pertinent History ENT History: No Pertinent History Cardiac History: High Cholesterol, Hypertension Respiratory History: Asthma Endocrine Medical History: No Pertinent History Musculoskeletal History: No Pertinent History GI Medical History: GERD History: No Pertinent History Psycho-Social History: No Pertinent History Female Reproductive Disorders: No Pertinent History Other Medical History: possible heart- didnt follow up - Past Surgical History Past Surgical History: Yes Neuro Surgical History: No Pertinent History Cardiac: No Pertinent History Respiratory: No Pertinent History Gastrointestinal: No Pertinent History Genitourinary: No Pertinent History Musculoskeletal: No Pertinent History Female Surgical History: Section Other Surgical History: x three - Social History Smoking Status: Current every day smoker How long have you smoked: 40 Exposure to second hand smoke: Yes Drug Use: none Patient Lives Alone: No - Female History Hx Last Menstrual Period: post Hx Now: No - Nursing Vital Signs Nursing Vital Signs: Initial Vital Signs Temperature 97.0 F 09/05/20 16:07 Pulse Rate 76 09/05/20 16:07 Respiratory Rate 18 09/05/20 16:07 Blood Pressure 183/84 09/05/20 16:07 O2 Sat by Pulse Oximetry 96 09/05/20 16:07 Pain Scale Pain Intensity 4 - Physical Exam General Appearance: no apparent distress, alert Eyes, Ears, Nose, Throat Exam: moist mucous membranes Neck Exam: non-tender, supple Cardiovascular/Respiratory Exam: chest non-tender, normal breath sounds, regular rate/rhythm, no respiratory distress Gastrointestinal/Abdominal Exam: non-tender, soft Back Exam: normal inspection, No vertebral tenderness Hips Exam: bilateral: non-tender, normal inspection, normal range of motion, no evidence of injury Legs Exam: bilateral leg: non-tender, normal inspection, normal range of motion, no evidence of injury Knees Exam: bilateral knee: non-tender, normal inspection, normal range of motion, no evidence of injury Ankle Exam: right ankle: pain, soft tissue tenderness, swelling, left ankle: non-tender, normal inspection, normal range of motion, no evidence of injury Foot Exam: left foot: pain, soft tissue tenderness, swelling, other (Pain to the lateral malleolus and proximal foot just distal to the ankle mortise.), bilateral foot: non-tender, normal inspection, normal range of motion, no eviden ce of injury Neuro/Tendon Exam: normal sensation, normal motor functions Mental Status Exam: alert, oriented x 3, cooperative Skin Exam: normal color, warm, dry SpO2 Interpretation: normal SpO2: 96 O2 Delivery: Room Air - Course Nursing assessment & vital signs reviewed: Yes - Radiology Exams Ankle X-ray Interpretation: Teleradiologist Report (Soft tissue swelling and tiny spur of the distal anterior tibial/plantar calcaneus. No other bony articular or soft tissue abnormalities.) Foot X-ray Interpretation: Teleradiologist Report (3 nonweightbearing views right foot demonstrate tiny plantar heel spur. No other bony articular or soft tissue abnormalities.) Ordered Tests: Active Orders 24 hr Category Date Time Status ANKLE (3 VIEWS) Stat Exams 09/05/20 16:29 Completed FOOT (MINIMUM 3 VIEWS) Stat Exams 09/05/20 16:31 Completed - Progress Progress: improved Progress Note: Patient reassessed. She continues to decline pain medication. X-rays negative for fracture dislocation. A heel spur was identified. We will provide patient with bilateral axillary crutches. Patient agrees to follow-up with her primary care doctor within 48 hours for reevaluation. Patient voiced no other complaints or concerns at this time. Will discharge home. 09/05/20 16:55 Counseled pt/family regarding: diagnosis, need for follow-up, rad results - Departure Departure Disposition: Home Clinical Impression: Ankle sprain, Heel spur Condition: Stable Critical Care Time: No Referrals: STU DE ANDA [Primary Care Provider] - Additional Instructions: Discharge/Care Plan FOREIGN GILLESPIE was seen on 09/05/20 in the Emergency Room. The patient was counseled regarding Diagnosis,Lab results, Imaging studies, need for follow up and when to return to the Emergency Room. Prescriptions given: Discharge Note I have spoken with the patient and/or caregivers. I have explained the patient's condition, diagnosis and treatment plan based on the information available to me at this time. I have answered the patient's and/or caregiver's questions and addressed any concerns. The patient and/or caregivers have as good understanding of the patient's diagnosis, condition and treatment plan as can be expected at this point. The vital signs have been stable. The patient's condition is stable and appropriate for discharge from the emergency department. The patient will pursue further outpatient evaluation with the primary care physician or other designated or consulting physician as outlined in the discharge instructions. The patient and/or caregivers are agreeable to this plan of care and follow-up instructions have been explained in detail. The patient and/or caregivers have received these instruction. The patient/and or caregivers are aware that any significant change in condition or worsening of symptoms should prompt an immediate return to this or the closest emergency department or call 911.
--- NOTE | 2020-09-05 16:52 | XRAY ---
Indication: Pain following twisting injury. Comparison: None 3 view right ankle demonstrates lateral soft tissue swelling and tiny spurring of the distal anterior tibia/plantar calcaneus. No other bony, articular, or soft tissue abnormalities.
--- NOTE | 2020-09-05 16:53 | XRAY ---
Indication: Pain following twisting injury. Comparison: None 3 nonweightbearing views right foot demonstrates tiny plantar heel spur. No other bony, articular, or soft tissue abnormalities.
== END 2020-09-05 17:12 | disposition home or self-care (01) ==
LOC: ED 15:58
DX: S93.401A Sprain of unspecified ligament of right ankle, initial encounter (principal); X50.1XXA Overexertion from prolonged static or awkward postures, initial encounter; Y93.89 Activity, other specified; Y92.89 Other specified places as the place of occurrence of the external cause; Y99.8 Other external cause status
CPT/HCPCS: 73610; 73630; 99283